=== PATIENT | female | born 1995 | race Two or more races ===

== ENCOUNTER 2022-05-24 21:21 | Emergency (ER) | payer SELFPAY ==
[~2022-05-24] VITALS: Ht 162.6 cm; Wt 100.0 kg
[2022-05-25] MEDS ORDERED: ONDANSETRON ODT 4 MG TAB PO ONE (02:00)
[2022-05-25] MEDS ORDERED: ACETAMINOPHEN/CODEINE#3 (300/30mg) TAB PO ONE (02:00)
[2022-05-25] MEDS ORDERED: ACE3T PO ×2 (04:04→04:27)
[2022-05-25 05:55] VITALS: BP 116/77
== END 2022-05-25 07:00 | disposition home or self-care (01) ==
LOC: ER 21:21
DX: S42.011A Anterior displaced fracture of sternal end of right clavicle, initial encounter for closed fracture (principal); S70.12XA Contusion of left thigh, initial encounter; S60.211A Contusion of right wrist, initial encounter; V89.2XXA Person injured in unspecified motor-vehicle accident, traffic, initial encounter; Y93.89 Activity, other specified; Y92.89 Other specified places as the place of occurrence of the external cause; Y99.8 Other external cause status
CPT/HCPCS: 70450; 72125; 73000; 73110; 73552; 99284; Q0162